=== PATIENT | male | born 1975 | race Caucasian/White ===

== ENCOUNTER 2024-11-02 00:02 | Day surgery (SDC) | payer OTHER, SELFPAY ==
[2024-10-23 10:14] VITALS: BMI 39.6
--- OUTSIDE RECORDS SUMMARY | 2024-11-02 00:05 | XMS_ITS | Clinical Summary ---
Author Organization [facility] Address [facility] access hospital[address] [place] [address] Care Team Providers Care Foundry Molder Name Role Phone Unavailable Primary Care Provider Unavailabl e Social History Tobacco Use Types Packs/Day Years Used Date Smoking Tobacco: Never Assessed Sex and Gender Information Value Date Recorded Sex Assigned at Not on file Legal Sex Male 10:01 PM CDT Gender Identity Not on file Sexual Orientation Not on file Plan of Treatment Health Maintenance Due Date Last Done Comments Colorectal Cancer Screening Colonoscopy (10 Years) 1974 Annual Physical 1977 Hepatitis C 1992 DTaP, Tdap and Td Vaccines ( 1 - Tdap) 1993 Hepatitis B Vaccines (1 of 3 - 19+ 3-dose series) 1993 COVID-19 Vaccine ( - 2023-2 5 season) 2024 Influenza Adult (#1) 2024 Zoster Vaccines (1 of 2) 2024 Meningococcal B Vaccine Aged Out No l onger eligible based on patient's age to complete this topic Meningococcal Vaccine Aged Out No johnny sinan eligible based on patient's age to complete this topic Pneumococcal Vaccine: Pediat rics (0 to 5 Years) and At-Risk Patients (6 to 64 Years) Aged Out No longer eligible b ased on patient's age to complete this topic RSV Immunizations Under 20 Months Aged Out No longer eligible based on patient's age to complete this topic
--- OUTSIDE RECORDS SUMMARY | 2024-11-02 00:05 | XMS_ITS | Clinical Summary ---
Author Organization [facility] Address [address] [place] [id number] Care Team Providers Care Tar Heel Name Role Phone Yovany Ivan MD Primary Care Provider [phone] Allergies No known active allergies Medications Lipitor 10 mg tablet 01/06/2020 Active telmisartan-hydroc hlorothiazid (MICARDIS HCT) 80-12.5 mg per tablet 07/20/2020 Active Active Problems Problem Noted Date Diagnosed Date Trigger middle finger of right hand 08/01/2020 Overview (08/01/2020): Added automatically from request for surgery [id number] Essential hypertension 09/24/2019 NAFLD (nonalcoholic fatty liver disease) 020 Other hyperlipidemia 09/24/2019 Medical History Medical History Date Comments HTN (hypertension) Hypercholesteremia Family History Medical History Relation Name Comments Cancer Father Hypertension Father Kidney disease Father Cancer Mother Hypertension Mother Relation Name Status Comments Father Mother Social History Tobacco Use Types Packs/Day Years Used Date Smoking Tobacco: Never Smokeless Tobacco: Never Alcohol Use Standard Drinks/Week Comments Defer 0 (1 standard drink = 0.6 oz pur e alcohol) social Comments Unknown Sex and Gender Information Value Date Recorded Sex Assigned at Not on file Legal Sex Unknown 10/12/2016 10:01 PM LEAN SIX SIGMA SENIOR SPECIALIST Gender Identity Not on file Sexual Orientation Not on file Obstetrics History Last Filed Vital Signs Vital Sign Reading Time Taken Comments Blood Pressure 115/66 08/31/2020 10:00 AM LEAN SIX SIGMA SENIOR SPECIALIST Pulse 71 08/31/2020 10:00 AM LEAN SIX SIGMA SENIOR SPECIALIST Temperature 36.9 C (98.4 F) 08/31/2020 9:40 AM LEAN SIX SIGMA SENIOR SPECIALIST Respiratory Rate 23 08/31/2020 10:00 AM LEAN SIX SIGMA SENIOR SPECIALIST Oxygen Saturation 94% 08/31/2020 10:00 AM LEAN SIX SIGMA SENIOR SPECIALIST Inhaled Oxygen Concentration - - Weight 99.8 kg (220 lb) 01/19/2020 9:55 AM CDT Height 172.7 cm (5' 8 ) 01/19/2020 9:55 AM CDT Body Mass Index 33.45 01/19/2020 9:55 AM CDT Plan of Treatment Not on file Insurance [facility] CHOICE PLUS Care Teams Tar Heel Relationship Specialty Start Date End Date Yovany Ivan MD PCP - General Internal Medicine 10/21/19
--- OUTSIDE RECORDS SUMMARY | 2024-11-02 00:05 | XMS_ITS | Referral Summary ---
Author Organization [facility] Address [address] [place] [id number] Care Team Providers Care Rn International Name Role Phone Yovany Ivan MD Primary Care Provider [phone] Allergies No known active allergies Medications Lipitor 10 mg tablet 01/06/2020 Active telmisartan-hydroc hlorothiazid (MICARDIS HCT) 80-12.5 mg per tablet 07/20/2020 Active Active Problems Problem Noted Date Diagnosed Date Trigger middle finger of right hand 08/01/2020 Overview (08/01/2020): Added automatically from request for surgery [id number] Essential hypertension 09/24/2019 NAFLD (nonalcoholic fatty liver disease) 020 Other hyperlipidemia 09/24/2019 Social History Tobacco Use Types Packs/Day Years Used Date Smoking Tobacco: Never Smokeless Tobacco: Never Alcohol Use Standard Drinks/Week Comments Defer 0 (1 standard drink = 0.6 oz pur e alcohol) social Comments Unknown Sex and Gender Information Value Date Recorded Sex Assigned at Not on file Legal Sex Unknown 10/12/2016 10:01 PM MEAT SELECTOR Gender Identity Not on file Sexual Orientation Not on file Last Filed Vital Signs Vital Sign Reading Time Taken Comments Blood Pressure 115/66 08/31/2020 10:00 AM MEAT SELECTOR Pulse 71 08/31/2020 10:00 AM MEAT SELECTOR Temperature 36.9 C (98.4 F) 08/31/2020 9:40 AM MEAT SELECTOR Respiratory Rate 23 08/31/2020 10:00 AM MEAT SELECTOR Oxygen Saturation 94% 08/31/2020 10:00 AM MEAT SELECTOR Inhaled Oxygen Concentration - - Weight 99.8 kg (220 lb) 01/19/2020 9:55 AM CDT Height 172.7 cm (5' 8 ) 01/19/2020 9:55 AM CDT Body Mass Index 33.45 01/19/2020 9:55 AM CDT Plan of Treatment Not on file Insurance [facility] CHOICE PLUS Care Teams Rn International Relationship Specialty Start Date End Date Yovany Ivan MD PCP - General Internal Medicine 10/21/19
--- OUTSIDE RECORDS SUMMARY | 2024-11-02 00:05 | XMS_ITS | Clinical Summary ---
Author Organization [facility] Address [address] [place] [address] Care Team Providers Care News Technical Director Name Role Phone Unavailable Primary Care Provider Unavailabl e Source Comments [facility],non-owned Affiliates and Associated Physician Practices is amultiple site organization consisting of ambulatory clinics and hospital sitesin [place], [place], [place] and [place]. This disclosure is being madepursuant to the Care Everywhere program and may not contain all information available regarding this patient. Last updated 18.[facility] Allergies No known active allergies Medications * Be aware that medications may not be up to date on this document. Alwaysverify current medications with the patient. Medication Sig Dispensed Refills Start Date End Date Status atorvastatin (LIPITOR) 10 MG tablet Take 10 mg by mouth once daily 09/13/2019 Active metoprolol succinate XL 24hr (TOPROL XL) 25 MG tablet Take 25 mg by mouth once daily 09/03/2019 Active vitamin E (TOCOPHERYL) 400 UNIT capsule Take 400 Units by mouth once daily Active Active Problems Problem Noted Date Diagnosed Date NAFLD (nonalcoholic fatty liver disease) 020 Essential hypertension 09/24/2019 Other hyperlipidemia 09/24/2019 Social History Tobacco Use Types Packs/Day Years Used Date Smoking Tobacco: Never Smokeless Tobacco: Never Alcohol Use Standard Drinks/Week Comments Yes 0 (1 standard drink = 0.6 oz pur e alcohol) Sex and Gender Information Value Date Recorded Sex Assigned at Not on file Gender Identity Not on file Sexual Orientation Not on file Last Filed Vital Signs Vital Sign Reading Time Taken Comments Blood Pressure 174/94 09/24/2019 1:41 PM VEHICLE FARE COLLECTOR Pulse 66 09/24/2019 1:41 PM VEHICLE FARE COLLECTOR Temperature 36.7 C (98.1 F) 09/24/2019 1:41 PM VEHICLE FARE COLLECTOR Respiratory Rate - - Oxygen Saturation - - Inhaled Oxygen Concentration - - Weight 111.6 kg (246 lb) 09/24/2019 1:41 PM VEHICLE FARE COLLECTOR Height 172.7 cm (5' 8 ) 09/24/2019 1:41 PM VEHICLE FARE COLLECTOR Body Mass Index 37.4 09/24/2019 1:41 PM VEHICLE FARE COLLECTOR Plan of Treatment Health Maintenance Due Date Last Done Comments COLOGUARD (AGES 45-75) - COL ON CA SCREENING 1974 COLON MONITORING 1974 COLONOSCOPY - COLON CA SCREENING 1974 CT COLONOGRAPHY - COLON CA SCREENING 1974 Colorectal Cancer Screening 1974 FIT - COLON CA SCREENING 1974 FLEX SIG - COLON CA SCREENING 1974 HIV SCREENING 1989 HEPATITIS C SCREENING 07/12/1992 DTAP/TDAP/TD VACCINES (1 - Tdap) 1993 HEPATITIS B VACCINE (1 of 3 - 19+ 3-dose series) 1993 SCREENING FOR DIABETES 09/24/2022 09/24/2019 COVID-19 VACCINE (1 - 2023-2 5 season) 2024 INFLUENZA VACCINE (#1) 2024 PNEUMOCOCCAL VACCINE 50+ (1 of 1 - PCV) 2024 ZOSTER VACCINE (1 of 2) 2024 DEPRESSION SCREENING 08/12/2024 HIB VACCINE Aged Out No longer eligi ble based on patient's age to complete this topic HPV VACCINE Aged Out No longer eligi ble based on patient's age to complete this topic MENINGOCOCCAL (Group B) VACC INE SHARED DECISION-MAKING Aged Out No longer eligibl e based on patient's age to complete this topic MENINGOCOCCAL GROUPS A/C/Y/W VACCINE Aged Out No longer eligible b ased on patient's age to complete this topic PNEUMOCOCCAL VACCINE Aged Out No long er eligible based on patient's age to complete this topic Procedures Procedure Name Priority Date/Time Associated Diagnosis Comments COMPREHENSIVE METABOLIC PANEL Routine 09/24/2019 3:18 PM VEHICLE FARE COLLECTOR NAFLD (nonalcoholic fatty liver disease) from Last 3 Months or Most Recently Relevant to Health Maintenance Results * (ABNORMAL) COMPREHENSIVE METABOLIC PANEL (09/24/2019 3:18 PM [facility]) BUN 11 7 - 26 mg/dL 09/24/2019 3:56 PM [facility] Creatinine 1.0 0.6 - 1.2 mg/dL 09/24/2019 3:56 PM [facility] Sodium 138 136 - 145 mmol/L 09/24/2019 3:56 PM [facility] Potassium 4.0 3.5 - 4.5 mmol/L 09/24/2019 3:56 PM [facility] Chloride 101 98 - 107 mmol/L 09/24/2019 3:56 PM [facility] CO2 28 22 - 29 mmol/L 09/24/2019 3:56 PM [facility] Glucose 91 70 - 115 mg/dL 09/24/2019 3:56 PM [facility] Calcium 10.2 8.4 - 10.2 mg/dL 09/24/2019 3:56 PM [facility] Protein Total 8.4(H) 6.0 - 8.3 g/dL 09/24/2019 3:56 PM [facility] Albumin 5.1(H) 3.4 - 5.0 g/dL 09/24/2019 3:56 PM [facility] Bilirubin Total 0.8 0.2 - 1.2 mg/dL 09/24/2019 3:56 PM [facility] Alkaline Phosphatase 43 40 - 150 Units/L 09/24/2019 3:56 PM [facility] ALT 86(H) 0 - 55 Units/L 09/24/2019 3:56 PM [facility] AST 47(H) 5 - 34 Units/L 09/24/2019 3:56 PM [facility] Anion Gap 13 8 - 18 09/24/2019 3:56 PM [facility] BUN/Creatinine Ratio 11 7 - 23 09/24/2019 3:56 PM [facility] Osmolality Calculated 285 270 - 300 mOsm/kg 09/24/2019 3:56 PM [facility] Albumin/Globulin Ratio 1.5 1.1 - 2.3 09/24/2019 3:56 PM [facility] eGFR >60 >60 mL/min/1.7 3 m2 09/24/2019 3:56 PM VEHICLE FARE COLLECTOR [facility] Blood BLOOD SPECIMEN / Unknown Lab Venipuncture / Unknown 09/24/2019 3:18 PM VEHICLE FARE COLLECTOR 09/24/2019 3:24 PM VEHICLE FARE COLLECTOR Chandler Cuellar MD LAB - CHEMISTR Y ORDERABLES [facility] [address] [phone] from Last 3 Months or Most Recently Relevant to Health Maintenance BENIGNO GARDNER Personal/Famil y 1975 [address] [place] [address]
[2024-11-02 06:24] VITALS: BP 147/83; PULSE 77; RESP 18; TEMP 36.4; O2SAT 97
[2024-11-02] MEDS: LACTATED RINGERS 1,000 ML 150 ML IV CONT (06:31)
--- NOTE | 2024-11-02 07:26 | WPDANESEPPF ---
Anes - Initial Pre Proc Eval Procedure: Operation Date: 11/02/24 07:30 Proposed Procedures p Screening Colonoscopy - Butch Thomas DO Date/Time: 11/02/24 07:26 Surgeon: Butch Thomas DO Pre Op Diagnosis: Screening for malignant neoplasm of colon Patient Data Age: 49 Gender: M Height: 1.73 m Weight: 116.7 kg Last Vital Signs Temp 97.5 F L 11/02/24 06:24 Pulse 77 11/02/24 06:24 Resp 18 11/02/24 06:24 BP 147/83 H 11/02/24 06:24 Pulse Ox 97 11/02/24 06:24 O2 Del Method Room Air 11/02/24 06:24 Allergies Allergy/AdvReac Type Severity Reaction Status Date / Time No Known Allergies Allergy Verified 11/02/24 06:23 Home Medications ?Medication ?Instructions ?Recorded ?Confirmed ?Type amlodipine 5 mg tablet 5 mg PO DAILY 10/23/24 11/02/24 History atorvastatin 10 mg tablet 10 mg PO QPM 10/23/24 11/02/24 History losartan 100 1 tablet PO DAILY 10/23/24 11/02/24 History mg-hydrochlorothiazide 25 mg tablet Patient hx anesthesia problems: none Family hx anesthesia problems: none Results Review: All pre-operative results and documents have been reviewed as part of the pre-operative evaluation. [facility] Social History Social History Smoking status: Never smoker Drinks per week: 6 Living arrangements: with family Additional living arrangements comments: with Spiritual care concerns: No Anes - Eval Final PreProcedure Day of Procedure 11/02/24 07:26 Patient weight: normal Lungs: normal air movement Airway: Mallampati scale class II Neurological: alert and oriented Last oral intake: >/= 8 hours ASA classification: II Emergent: no Anesthetic plan: proceed Anesthesia type and monitoring: general GIVS and standard monitoring Results Review: All pre-operative results and documents have been reviewed as part of the pre-operative evaluation. HTN, hyperlipidemia. Informed Consent: The patient's anesthetic plan and its attendant risks and benefits were discussed with the patient/family/POA. Questions were solicited and answers provided to the satisfaction of the patient/family/POA.
--- NOTE | 2024-11-02 07:28 | PM.IMHP ---
H&P: HPI History of Present Illness Date/Time: 11/02/24 07:28 Chief Complaint: Screening for colorectal cancer Narrative: this is a 49-year-old man who presents for colonoscopy. He denies any hematochezia or melena. He denies any family history of colon cancer. Review of Systems Review of Systems: All systems reviewed & are unremarkable except as noted in HPI and below Constitutional: Constitutional: Denies chills, Denies fever(s), Denies headache(s) and Denies weight loss Eyes: Eyes: Denies change in vision ENT: Denies dizziness, Denies headache(s), Denies neck mass and Denies throat swelling Cardiovascular: Cardiovascular: Denies chest pain, Denies lightheadedness and Denies dyspnea Respiratory: Respiratory: Denies cough, Denies dyspnea and Denies wheezing Gastrointestinal: Gastrointestinal: Denies abdominal pain, Denies change in bowel habits, Denies nausea and Denies vomiting Genitourinary: Genitourinary: Denies hematuria and Denies dysuria Musculoskeletal: Musculoskeletal: Reports as per HPI Integumentary/Breasts: Skin/Breast: Reports as per HPI Neurologic: Denies dizziness and Denies headache(s) Allergic/Immunologic: Allergic/Immunologic: Denies throat swelling and Denies wheezing PMFSH Social History Social History Smoking status: Never smoker Drinks per week: 6 Living arrangements: with family Additional living arrangements comments: with Spiritual care concerns: No Meds Home Medications and Allergies Home Medications ?Medication ?Instructions ?Recorded ?Confirmed ?Type amlodipine 5 mg tablet 5 mg PO DAILY 10/23/24 11/02/24 History atorvastatin 10 mg tablet 10 mg PO QPM 10/23/24 11/02/24 History losartan 100 1 tablet PO DAILY 10/23/24 11/02/24 History mg-hydrochlorothiazide 25 mg tablet Allergies Allergy/AdvReac Type Severity Reaction Status Date / Time No Known Allergies Allergy Verified 11/02/24 06:23 Vital Signs Vital Signs - 24 hr 11/02/24 06:24 Temperature 97.5 F L Pulse Rate 77 Respiratory Rate 18 Blood Pressure 147/83 H Pulse Oximetry 97 Oxygen Delivery Room Air Exam Const: General: no acute distress and alert Orientation/consciousness: patient oriented x3 HENMT: Head: normocephalic and atraumatic Ears: hearing grossly normal bilaterally Face/Nose/Sinus: Normal nares present Mouth: Yes Normal oral and palatal mucosa present Eyes: Periorbital: periorbital findings normal Sclera: sclerae normal EOM: EOMs intact bilaterally Neck: Neck: normal visual inspection, no lymphadenopathy and trachea midline Chest: Chest palpation & inspection: normal inspection of the chest Resp: Effort & Inspection: normal respiratory effort Auscultation: clear to auscultation bilaterally Cardio: Jugular venous distension: no JVD Rate: regular rate Rhythm: regular rhythm Heart sounds: S1 normal heart sound present and S2 normal heart sound present Peripheral pulses: Peripheral pulses 2+ throughout GI: Inspection: normal to inspection GI Palp: Yes Soft to palpation, No Tenderness to palpation present (GI), No Guarding due to palpation present (GI) and No Rebound tenderness present Percussion: Yes normal to percussion Auscultation: normal bowel sounds : General: Yes no CVA tenderness Back/Spine/Pelvis: Back: no CVA tenderness Neuro: General: patient oriented x3, no focal motor deficits and CN's II-XI intact bilaterally Cognition (Neuro): normal cognition Speech: normal speech Motor exam (neuro): 5/5 motor strength present throughout Extrem: General: capillary refill normal and no clubbing, cyanosis or edema Assessment and Plan Assessment and plan (1) Screening for colorectal cancer: Code(s): Z12.11 - Encounter for screening for malignant neoplasm of colon; Z12.12 - Encounter for screening for malignant neoplasm of rectum Status: Acute Assessment and Plan: I have recommended colonoscopy. I have discussed the procedure, risks, benefits, and alternatives. Questions were answered. Patient is agreeable to proceed.
[2024-11-02 07:49] VITALS: BP 112/69; PULSE 76; RESP 18; O2SAT 97
[2024-11-02 07:59] VITALS: BP 122/79; PULSE 68; RESP 18; O2SAT 98
[2024-11-02 08:09] VITALS: BP 122/76; PULSE 66; RESP 18; O2SAT 98
== END 2024-11-02 08:25 | disposition home or self-care (01) ==
PROVIDERS: PCP Internal Medicine; Visit Provider Surgery
PROC: 0DJD8ZZ Inspection of Lower Intestinal Tract, Via Natural or Artificial Opening Endoscopic (ICD-10-PCS; CPT 45378; principal; 2024-11-02 07:30)
DX: Z12.11 Encounter for screening for malignant neoplasm of colon (principal); D12.5 Benign neoplasm of sigmoid colon
CPT/HCPCS: 45380; 88305; J7120